=== PATIENT | male | born 1945 | race Caucasian/White ===

== ENCOUNTER 2022-02-12 08:18 | Inpatient (IN) | payer MEDICARE ==
[~2022-02-12] VITALS: Ht 180.3 cm; Wt 88.0 kg
[~2022-02-12 08:18] MED LIST: ALL DAY ALL1 MG/1 ML PO; ASPIR 8181 MG PO; FLONASE ALLER15.8 ML; LISINOPRIL-HCT1 EAC1 PO; OSTEO BI-FLEX1 EAC1 PO; ZOCOR20 MG PO
[2022-02-12 09:19] LABS: BASOPHIL 0.2 % (0-2); EOSINOPHIL 0.1 % (0-7); HCT 47.2 % (42.0-52.0); HGB 15.7 g/dl (13.2-18.0); LYMPHOCYTE 5.8 % (15-48); MCH 30.1 pg (25.0-31.0); MCHC 33.3 g/dL (32.0-36.0); MCV 90.6 fL (78.0-100.0); MONOCYTE 5.9 % (0-12); NEUTROPHIL 87.6 % (41-80); NRBC 0; PLT 170 K/uL (150-400); RBC 5.21 M/uL (4.70-6.00); WBC 22.8 K/uL (4.0-10.5)
[2022-02-12 09:40] LABS: ALBUMIN 3.7 g/dL (3.4-5.0); BILIRUBIN - TOTAL 1.1 mg/dL (0.2-1.0); CREATININE 1.08 mg/dL (0.67-1.17); GLOBULIN (CALCULATION) 3.5 g/dL; POTASSIUM 4.7 mmol/L (3.5-5.1); TOTAL PROTEIN 7.2 g/dL (6.4-8.2)
[2022-02-12 09:52] LABS: LACTIC ACID 1.3 mmol/L (0.4-1.9)
[2022-02-12 09:54] LABS: BILIRUBIN NEGATIVE (NEGATIVE); BLOOD NEGATIVE Ery/uL (NEGATIVE); CLARITY CLEAR (CLEAR); COLOR YELLOW (YELLOW); GLUCOSE (U) NORMAL (NORMAL); LEUKOCYTES NEGATIVE Leu/uL (NEGATIVE); NITRITE NEGATIVE (NEGATIVE); PROTEIN NEGATIVE (NEGATIVE); SPECIFIC GRAVITY 1.015 (1.001-1.030)
[2022-02-12 17:11] LABS: BILIRUBIN NEGATIVE (NEGATIVE); BLOOD 3+ Ery/uL (NEGATIVE); CLARITY CLEAR (CLEAR); COLOR YELLOW (YELLOW); GLUCOSE (U) NORMAL (NORMAL); LEUKOCYTES NEGATIVE Leu/uL (NEGATIVE); NITRITE NEGATIVE (NEGATIVE); PROTEIN NEGATIVE (NEGATIVE); pH 7.5 (5.0-9.0)
[2022-02-12 17:27] LABS: SQUAMOUS EPITHELIAL CELLS RARE; URINARY RBC 20-50
[2022-02-12] MEDS ORDERED: ZOCOR20 MG PO (18:08)
[2022-02-12] MEDS ORDERED: LISINOPRIL-HCT1 EAC1 PO (18:10)
[2022-02-12] MEDS ORDERED: FLOMAX0.4 MG PO (18:11)
[2022-02-12] MEDS ORDERED: FLONASE ALLER15.8 ML (18:12)
[2022-02-12] MEDS ORDERED: OSTEO BI-FLEX1 EAC2 PO (18:13)
[2022-02-12] MEDS ORDERED: ZYRTEC10 MG PO (18:14)
[2022-02-12] MEDS ORDERED: DICLOFENAC SODI75 MG PO (18:15)
[2022-02-12] MEDS ORDERED: MEDROL 4MG DOSEP4 MG PO (18:15)
[2022-02-12] MEDS ORDERED: NEXIUM 24HR20 M1 PO (18:16)
[2022-02-13 06:56] LABS: BASOPHIL 0.1 % (0-2); EOSINOPHIL 0 % (0-7); HGB 13.3 g/dl (13.2-18.0); LYMPHOCYTE 3.1 % (15-48); MCH 30.2 pg (25.0-31.0); MCHC 32.4 g/dL (32.0-36.0); MCV 93.2 fL (78.0-100.0); MONOCYTE 3.8 % (0-12); MPV 10.5 fL (6.0-9.5); NEUTROPHIL 92.4 % (41-80); NRBC 0; PLT 149 K/uL (150-400); RDW 13.2 % (11.5-14.0); WBC 18.3 K/uL (4.0-10.5)
[2022-02-13 07:12] LABS: BUN/CREAT RATIO (CALC) 23.8 RATIO; CREATININE 1.01 mg/dL (0.67-1.17); MAGNESIUM 1.9 mg/dL (1.8-2.4); POTASSIUM 4.7 mmol/L (3.5-5.1)
--- NOTE | 2022-02-13 11:39 | NUR ---
02/13/22 Mr. Victoria lives at home with his spouse. He was independent in the home and community prior to admission. He is able to meet his financial obligations. - Will monitor for discharge planning needs r/t to colostomy and 02 needs.
[2022-02-14 05:43] LABS: BASOPHIL 0.1 % (0-2); EOSINOPHIL 0.2 % (0-7); HCT 36.2 % (42.0-52.0); LYMPHOCYTE 5.7 % (15-48); MCH 30.3 pg (25.0-31.0); MCHC 33.1 g/dL (32.0-36.0); MCV 91.4 fL (78.0-100.0); MPV 10.5 fL (6.0-9.5); NEUTROPHIL 87.5 % (41-80); NRBC 0; PLT 163 K/uL (150-400); RBC 3.96 M/uL (4.70-6.00); RDW 12.9 % (11.5-14.0); WBC 16.4 K/uL (4.0-10.5)
[2022-02-14 06:31] LABS: MAGNESIUM 2.1 mg/dL (1.8-2.4); PHOSPHORUS 2.5 mg/dL (2.6-4.7); POTASSIUM 4.5 mmol/L (3.5-5.1)
[2022-02-15 07:15] LABS: BASOPHIL 0.1 % (0-2); EOSINOPHIL 2.3 % (0-7); HCT 36.3 % (42.0-52.0); LYMPHOCYTE 10.2 % (15-48); MCH 30.1 pg (25.0-31.0); MCHC 33.1 g/dL (32.0-36.0); MONOCYTE 9.7 % (0-12); MPV 10.6 fL (6.0-9.5); NEUTROPHIL 77.3 % (41-80); NRBC 0; PLT 193 K/uL (150-400); RBC 3.99 M/uL (4.70-6.00); RDW 13.1 % (11.5-14.0); WBC 10.3 K/uL (4.0-10.5)
[2022-02-15 07:44] LABS: BUN/CREAT RATIO (CALC) 21.5 RATIO; CREATININE 1.07 mg/dL (0.67-1.17); MAGNESIUM 2.1 mg/dL (1.8-2.4); PHOSPHORUS 3.1 mg/dL (2.6-4.7)
--- NOTE | 2022-02-15 16:49 | NUR ---
CALLED TO ASSIST WITH PICC LINE INSERTION BY ROSAMARIA LITTLEJOHN. I DONNED STERILE GOWN AND GLOVES TO ASSIST. I MADE ONE ATTEMPT WITH 20GAUGE NEEDLE TO ACCESS PATIENTS RIGHT UPPER BRACHIAL VEIN. BLOOD RETURN NOTED, UNABLE TO ADVANCE GUIDEWIRE. REMOVED CATHETER AND HELD PRESSURE. PICC LINE INSERTION UNSUCCESSFUL AT THIS TIME. ERON WILL ATTEMPT AGAIN TOMORROW.
--- NOTE | 2022-02-15 18:17 | NUR ---
ATTEMPTS IN BOTH ARMS FOR PICC UNSUCCESSFUL BY MYSELF AND KANDY BLANK. WILL ATTEMPT TOMORROW PLAN TO START TPN IN AM PER DR PARDO.
--- NOTE | 2022-02-16 04:35 | NUR ---
CALLED TO ROOM BY , PATIENT HAS EPISODE OF HEMAURIA, CHANGE MANAGEMENT MANAGER NOTFIED, PLAN OBSERVE AND REPORT ANY FURTHER EPISODES.
--- NOTE | 2022-02-16 06:19 | NUR ---
URINAL RIM PADDED TO PREVENT INJURY, PATIENT STATES HAS A SUPERFICIAL AREA ON PENIS, PRESENTS A SCRATCH LIKE AREA.
--- NOTE | 2022-02-16 17:09 | NUR ---
02/16/22 1004 AM - Order received for PICC Line. Risks and benefits explained for PICC line placement. Verbalized understanding. Consent obtained. Time Out completed with Kerry Persaud RN who will assist as needed.. Patients right upper arm baslic vein visualized using the [employer]. The site was marked with a surgical marker. Arm circumference and initial PICC length measured. The Sherlock device was placed on the patient's chest in the appropriate position. The patient was draped and prepped in sterile fashion. The area was then numbed with 1 cc of 1 % Lidocaine. Time was given for Lidocaine to take effect. A 21 gauge needle was used to access the vein guided by the [employer] ultrasound. Blood return noted. The guide wire was advanced through the needle into the vein. The needle was removed and the tourniquet released. The sheath introducer was inserted over the guide wire into the vein. The wire was removed and the cap was placed on the sheath introducer. The 5 FR Power PICC was trimmed at 41 cm then guided into the position using the Sherlock device. The sheath introducer was removed. STAT CXR was ordered to verify placement. Inital CXR showed PICC line curled in SVC per Dr Sanchez. Ordered to pull 2cm out while flushing. Dressing removed, cathether pulled 2cm and sterile dressing reapplied. Dr Sanchez states the PICC is in the SVC with no curing at end. Report to RN that line ready to use.
[2022-02-17 06:15] LABS: BASOPHIL 0.3 % (0-2); EOSINOPHIL 5.5 % (0-7); HCT 37.3 % (42.0-52.0); HGB 12.3 g/dl (13.2-18.0); LYMPHOCYTE 7.2 % (15-48); MCH 29.9 pg (25.0-31.0); MCV 90.5 fL (78.0-100.0); MONOCYTE 7.9 % (0-12); MPV 10.1 fL (6.0-9.5); NEUTROPHIL 78.1 % (41-80); NRBC 0; PLT 180 K/uL (150-400); RBC 4.12 M/uL (4.70-6.00); RDW 12.8 % (11.5-14.0); WBC 11.6 K/uL (4.0-10.5)
[2022-02-17 06:35] LABS: BUN/CREAT RATIO (CALC) 10.2 RATIO; CREATININE 0.88 mg/dL (0.67-1.17); PHOSPHORUS 2.5 mg/dL (2.6-4.7); POTASSIUM 3.7 mmol/L (3.5-5.1)
--- NOTE | 2022-02-17 19:20 | NUR ---
1914 increased tpn to 50 mls\hr at 0800 and to 75 mls\hr at 1600. to reach goal of 100 mls\hr at midnight.
[2022-02-18 06:44] LABS: BASOPHIL 0.3 % (0-2); EOSINOPHIL 4.4 % (0-7); LYMPHOCYTE 10.2 % (15-48); MCH 30.6 pg (25.0-31.0); MCHC 29.5 g/dL (32.0-36.0); MONOCYTE 8.6 % (0-12); MPV 10.2 fL (6.0-9.5); NEUTROPHIL 75.1 % (41-80); NRBC 0; PLT 164 K/uL (150-400); RBC 3.56 M/uL (4.70-6.00); RDW 13.3 % (11.5-14.0); WBC 9.6 K/uL (4.0-10.5)
[2022-02-18 06:52] LABS: MCV 103.9 fL (78.0-100.0)
[2022-02-18 08:45] LABS: HGB 11.9 g/dl (13.2-18.0)
[2022-02-18 09:25] LABS: BUN/CREAT RATIO (CALC) 17.5 RATIO; CREATININE 0.8 mg/dL (0.67-1.17); POTASSIUM 4.1 mmol/L (3.5-5.1)
[2022-02-18 09:26] LABS: PHOSPHORUS 2.7 mg/dL (2.6-4.7)
--- NOTE | 2022-02-19 14:50 | NUR ---
02/19 A referral was made to [facility] for colostomy care and [facility] for a rw per patient request.
[2022-02-20 06:34] LABS: BASOPHIL 0.3 % (0-2); EOSINOPHIL 2.7 % (0-7); HCT 36.7 % (42.0-52.0); LYMPHOCYTE 9.9 % (15-48); MCH 29.6 pg (25.0-31.0); MCHC 32.7 g/dL (32.0-36.0); MONOCYTE 7.8 % (0-12); MPV 9.6 fL (6.0-9.5); NRBC 0; PLT 209 K/uL (150-400); RBC 4.06 M/uL (4.70-6.00); RDW 13.2 % (11.5-14.0); WBC 10.8 K/uL (4.0-10.5)
[2022-02-20 06:37] LABS: MCV 90.4 fL (78.0-100.0)
[2022-02-20 06:59] LABS: BUN/CREAT RATIO (CALC) 15.6 RATIO; CREATININE 0.96 mg/dL (0.67-1.17); PHOSPHORUS 2.6 mg/dL (2.6-4.7); POTASSIUM 4.3 mmol/L (3.5-5.1)
[2022-02-20] MEDS ORDERED: PERCOCET 5-3251 EACH PO (10:45)
[2022-02-20] MEDS ORDERED: METRONIDAZOLE500 MG PO (10:45)
[2022-02-20] MEDS ORDERED: LEVAQUIN750 MG PO (10:45)
[2022-02-20] MEDS ORDERED: ONDANSETRON ODT4 MG PO (10:45)
[2022-02-20] MEDS ORDERED: AMOX TR-K CLV1 EAC4 PO (12:25)
--- NOTE | 2022-02-20 16:49 | NUR ---
PT D/C TO HOME D/C PAPER WORK GONE OVER WITH PT AND . EDUCATED ON HOW TO CHANGE CLOSTOMY BAG. PICC LINE REMOVED,, PRESSURE AND DSG APPLIED. PT LEFT WITH BY AUTO
== END 2022-02-20 12:46 | disposition home or self-care (01) | DRG 329 ==
LOC: FER 08:18 → FICU 13:43 → FMS 14:17 → FSDC 14:24 → FICU 17:18 → FMS 02-14 12:24
PROVIDERS: Emergency Medicine; Internal Medicine; Surgery; ADMIT Internal Medicine
PROC: 0DSN0ZZ Reposition Sigmoid Colon, Open Approach (ICD-10-PCS; 2022-02-12)
PROC: 3E03329 Introduction of Other Anti-infective into Peripheral Vein, Percutaneous Approach (ICD-10-PCS; 2022-02-12)
PROC: 0DBN0ZZ Excision of Sigmoid Colon, Open Approach (ICD-10-PCS; principal; 2022-02-12 14:18)
PROC: 02HV33Z Insertion of Infusion Device into Superior Vena Cava, Percutaneous Approach (ICD-10-PCS; 2022-02-16)
DX: K57.20 Diverticulitis of large intestine with perforation and abscess without bleeding (principal); A40.8 Other streptococcal sepsis; A41.51 Sepsis due to Escherichia coli [E. coli]; A41.89 Other specified sepsis; A41.50 Gram-negative sepsis, unspecified; R65.20 Severe sepsis without septic shock; K56.7 Ileus, unspecified; K91.89 Other postprocedural complications and disorders of digestive system; N17.9 Acute kidney failure, unspecified; Z20.822 Contact with and (suspected) exposure to COVID-19; I10 Essential (primary) hypertension; N40.0 Benign prostatic hyperplasia without lower urinary tract symptoms; E78.00 Pure hypercholesterolemia, unspecified; K21.9 Gastro-esophageal reflux disease without esophagitis; R31.0 Gross hematuria; F41.9 Anxiety disorder, unspecified; Z79.899 Other long term (current) drug therapy; Z88.5 Allergy status to narcotic agent; Z87.891 Personal history of nicotine dependence; Z98.890 Other specified postprocedural states; Z85.038 Personal history of other malignant neoplasm of large intestine
CPT/HCPCS: 36415; 71045; 74019; 80048; 80053; 80202; 81001; 81003; 83605; 83735; 84100; 84145; 85025; 86850; 86900; 86901; 86922; 87040; 87070; 87075; 87077; 87088; 87186; 87205; 93005; 94010; 94762; 97162; C1751; C9113; J0696; J0743; J0780; J1100; J1170; J1642; J1650; J2060; J2250; J2270; J2405; J2543; J2704; J3010; J7030; J7050; J7120; Q9967; U0002